=== PATIENT | male | born 1960 | race Caucasian/White ===

== ENCOUNTER 2020-10-22 10:13 | Emergency (ER) | payer BC ==
[2020-10-22 10:23] VITALS: BMI 29.7
[2020-10-22] MEDS ORDERED: ACETAMINOPHEN 325 MG TABLET (FP) PO ONE (12:09)
[2020-10-22 13:16] VITALS: BP 120/74; PULSE 81; TEMP 99.4
== END 2020-10-22 13:17 | disposition home or self-care (01) ==
LOC: JER 10:13
DX: Z11.59 Encounter for screening for other viral diseases (principal)
CPT/HCPCS: 71045-TC-FY; 99284-25; C9803; U0003